=== PATIENT | female | born 1970 | race Caucasian/White ===

== ENCOUNTER 2016-10-09 16:13 | Inpatient (IN) | payer MEDICAID ==
[~2016-10-09] VITALS: Ht 152.4 cm; Wt 51.4 kg
[~2016-10-09 16:13] MED LIST: MIRT15 PO
[2016-10-09] MEDS ORDERED: GABA100C PO (16:40)
[2016-10-09] MEDS ORDERED: ACTIVATED CHARCOAL 50 GM/240 ML SUSPENSION PO ONE (16:45)
[2016-10-09] MEDS ORDERED: SODIUM CHLORIDE 0.9% 1,000 ML IV ONE ×2 (16:45→19:45)
[2016-10-09] MEDS ORDERED: GABA-531 PO (16:56)
[2016-10-09 16:57] LABS: GLUCOSE,POINT OF CARE 89 MG/DL (70-110)
[2016-10-09 17:00] LABS: BASOPHILS % (AUTO) 0.4 % (0.0-2.0); EOSINOPHILS % (AUTO) 0.2 % (1.0-6.0); HEMATOCRIT 40.1 % (36-46); HEMOGLOBIN 13.1 g/dL (12.0-16.0); LYMPHOCYTES # (AUTO) 1.1 K/uL (1.0-4.8); MEAN CORPUSCULAR HEMOGLOBIN 30.6 pg (26.0-34.0); MEAN CORPUSCULAR HGB CONC 32.7 G/dL (31.0-37.0); MEAN CORPUSCULAR VOLUME 94 fL (80-100); MONOCYTES # (AUTO) 0.2 K/uL (0.1-1.0); MONOCYTES % (AUTO) 4.5 % (2.0-9.0); NEUTROPHILS % (AUTO) 74.9 % (40.0-70.0); PLATELET COUNT (AUTO) 166 K/uL (150-450); RED BLOOD CELL COUNT(AUTO) 4.29 MIL/uL (4.00-5.20); RED CELL DISTRIBUTION WIDTH 15.2 % (11.5-14.5); WHITE BLOOD COUNT (AUTO) 5.4 K/uL (4.5-11.0)
[2016-10-09] MEDS ORDERED: ONDANSETRON HCL 4 MG/2 ML VIAL IVP ONE ×2 (17:00)
[2016-10-09 17:08] LABS: ANION GAP 13 mmol/L (8-16); CALCIUM, TOTAL 8.9 mg/dL (8.8-10.5); CARBON DIOXIDE 25 mmol/L (22-29); CHLORIDE 104 mmol/L (98-107); CREATININE 0.59 mg/dL (0.60-1.30); GLOMERULAR FILTR. RATE CALC > 60 mL/min (>60); POTASSIUM 3.8 mmol/L (3.5-5.1); SODIUM SERUM 142 mmol/L (136-145); UREA NITROGEN, BLOOD 13 mg/dL (7-18)
[2016-10-09 17:13] LABS: PROTHROMBIN TIME 10.7 SEC (9.4-11.6)
[2016-10-09 17:15] LABS: ALANINE AMINOTRANSFERASE 18 U/L (12-78); ALBUMIN 4.3 g/dL (3.4-5.0); ASPARTATE AMINOTRANSFERASE 13 U/L (15-37); BILIRUBIN,TOTAL 0.5 mg/dL (0.1-1.0); TOTAL PROTEIN, SERUM 7.7 g/dL (6.4-8.2)
[2016-10-09 17:22] LABS: SALICYLATE < 2.8 mg/dL (2.8-20.0)
[2016-10-09 17:39] LABS: ACETAMINOPHEN < 2 mcg/mL (10-30)
[2016-10-09] MEDS ORDERED: LORazepam 2 MG TABLET PO PRN (21:30)
[2016-10-09] MEDS ORDERED: ZOLPIDEM TARTRATE 10 MG TABLET PO PRN (21:30)
[2016-10-09] MEDS ORDERED: OLANZapine 5 MG RAPDIS TABLET PO PRN (21:30)
[2016-10-09 22:16] LABS: APPEARANCE,URINE CLEAR (CLEAR); GLUCOSE, URINE (UA) NEGATIVE (NEGATIVE); KETONES,URINE TRACE mg/dL (NEGATIVE); LEUKOCYTE ESTERASE ,URINE NEGATIVE (NEGATIVE); PROTEIN,URINE NEGATIVE (NEGATIVE)
[2016-10-09 22:23] LABS: ADD UA MICROSCOPIC YES; OCCULT BLOOD,URINE TRACE (NEGATIVE)
[2016-10-09 22:24] LABS: SQUAMOUS EPITHELIAL CELL,UR Few /LPF (None Seen); WBC,URINE 0-2 /HPF (0-5)
[2016-10-10 01:29] VITALS: BP 123/71
[2016-10-10 01:39] VITALS: BP 123/71
[2016-10-10 08:00] VITALS: BP 110/69
[2016-10-10] MEDS ORDERED: MAG HYDROX/AL HYDROX/SIMETH ES 30 ML SUSPENSION UDCUP PO PRN (09:15)
[2016-10-10] MEDS ORDERED: ACETAMINOPHEN 325 MG TABLET PO PRN (09:15)
[2016-10-10] MEDS ORDERED: PROMETHAZINE HCL 25 MG TABLET PO PRN (09:15)
[2016-10-10] MEDS ORDERED: LOPERAMIDE HCL 2 MG CAPSULE PO PRN (09:15)
[2016-10-10] MEDS ORDERED: HydrOXYzine PAMOATE 50 MG CAPSULE PO PRN (09:15)
[2016-10-10] MEDS ORDERED: MAGNESIUM HYDROXIDE SUSPENSION 30 ML UDCUP PO PRN (09:15)
[2016-10-10] MEDS ORDERED: GuaiFENesin/D-METHORPHAN [SUGAR-FREE] 200-20MG/10 ML SYRUP UDCUP PO PRN (09:15)
[2016-10-10] MEDS: THIAMINE HCL 100 MG TABLET PO SCH (16:23)
[2016-10-10 18:53] VITALS: BP 100/72
[2016-10-10] MEDS: MIRTAZAPINE 15 MG TABLET PO SCH (20:26)
[2016-10-10] MEDS ORDERED: IBUPROFEN 400 MG TABLET PO PRN (21:30)
[2016-10-11 07:17] LABS: HEMOGLOBIN A1C 4.8 % (4.5-6.2)
[2016-10-11 07:40] LABS: THYROID STIMULATING HORMONE 0.38 uIU/mL (0.36-3.74)
[2016-10-11 08:01] VITALS: BP 105/60
[2016-10-11] MEDS: FOLIC ACID 1 MG TABLET PO SCH (08:15)
[2016-10-11] MEDS: NALTREXONE HCL 50 MG TABLET PO SCH (08:15)
[2016-10-11] MEDS: THIAMINE HCL 100 MG TABLET PO SCH ×2 (08:15→16:52)
[2016-10-11] MEDS: MULTIVITAMINS WITH MINERALS, THERAPEUTIC TABLET PO SCH (08:15)
[2016-10-11 16:58] VITALS: BP 116/68
[2016-10-11] MEDS: MIRTAZAPINE 15 MG TABLET PO SCH (20:30)
[2016-10-12] MEDS ORDERED: BuPROPion HCL XL 150 MG ER TABLET PO SCH (09:00)
[2016-10-12] MEDS: NALTREXONE HCL 50 MG TABLET PO SCH (09:31)
[2016-10-12] MEDS: THIAMINE HCL 100 MG TABLET PO SCH ×2 (09:31→16:22)
[2016-10-12] MEDS: FOLIC ACID 1 MG TABLET PO SCH (09:31)
[2016-10-12] MEDS: MULTIVITAMINS WITH MINERALS, THERAPEUTIC TABLET PO SCH (09:31)
[2016-10-12 10:23] VITALS: BP 107/69
[2016-10-12] MEDS ORDERED: BUPR-47 PO (15:30)
[2016-10-12] MEDS ORDERED: MIRT15 PO (15:30)
[2016-10-12] MEDS ORDERED: NALT50 PO (15:30)
[2016-10-12 16:16] VITALS: BP 101/68
[2016-10-12] MEDS: MIRTAZAPINE 15 MG TABLET PO SCH (21:03)
[2016-10-13 08:37] VITALS: BP 108/68
[2016-10-13] MEDS ORDERED: BuPROPion HCL XL 150 MG ER TABLET PO SCH (09:00)
[2016-10-13] MEDS: NALTREXONE HCL 50 MG TABLET PO SCH (10:18)
[2016-10-13] MEDS: THIAMINE HCL 100 MG TABLET PO SCH (10:19)
[2016-10-13] MEDS: MULTIVITAMINS WITH MINERALS, THERAPEUTIC TABLET PO SCH (10:19)
[2016-10-13] MEDS: FOLIC ACID 1 MG TABLET PO SCH (10:19)
== END 2016-10-13 12:45 | disposition home or self-care (01) | DRG 751 ==
LOC: EMS 16:15 → 3EI 22:07
PROVIDERS: ADMIT Psychiatry & Neurology Psychiatry; ATTEND Psychiatry & Neurology Psychiatry
PROC: HZ51ZZZ Individual Psychotherapy for Substance Abuse Treatment, Behavioral (ICD-10-PCS; principal; 2016-10-10)
DX: F33.9 Major depressive disorder, recurrent, unspecified (principal); E78.5 Hyperlipidemia, unspecified; F10.10 Alcohol abuse, uncomplicated; F19.10 Other psychoactive substance abuse, uncomplicated; F12.90 Cannabis use, unspecified, uncomplicated; F17.210 Nicotine dependence, cigarettes, uncomplicated; Z71.41 Alcohol abuse counseling and surveillance of alcoholic; Z71.51 Drug abuse counseling and surveillance of drug abuser; Z91.5 Personal history of self-harm; Z79.899 Other long term (current) drug therapy
CPT/HCPCS: 82962; 83036; 84443; 93005; 96361; 96374; 99291; G0480; G0481; J2405; J7030

== ENCOUNTER 2017-04-27 20:53 | Inpatient (IN) | payer MEDICAID ==
[~2017-04-27] VITALS: Ht 149.9 cm; Wt 48.1 kg
[~2017-04-27 20:53] MED LIST changes: +BUPR-47 PO; +NALT50TA6 PO
[2017-04-27] MEDS ORDERED: TRAZ-147 PO (21:00)
[2017-04-27] MEDS ORDERED: BUPR-93 PO (21:00)
[2017-04-27] MEDS ORDERED: LORazepam 2 MG TABLET PO ONE (22:00)
[2017-04-27 22:19] LABS: BASOPHILS # (AUTO) 0.01 K/uL (0.00-0.20); BASOPHILS % (AUTO) 0.4 % (0.0-2.0); EOSINOPHILS # (AUTO) 0.08 K/uL (0.00-0.70); EOSINOPHILS % (AUTO) 1.96 % (1.0-6.0); HEMATOCRIT 36.6 % (36-46); HEMOGLOBIN 12.4 g/dL (12.0-16.0); LYMPHOCYTES # (AUTO) 1.1 K/uL (1.0-4.8); LYMPHOCYTES % (AUTO) 28.9 % (22.0-44.0); MEAN CORPUSCULAR HEMOGLOBIN 31.6 pg (26.0-34.0); MEAN CORPUSCULAR HGB CONC 33.8 G/dL (31.0-37.0); MEAN CORPUSCULAR VOLUME 94 fL (80-100); MONOCYTES # (AUTO) 0.3 K/uL (0.1-1.0); MONOCYTES % (AUTO) 8.1 % (2.0-9.0); NEUTROPHILS # (AUTO) 2.4 K/uL (1.8-7.7); NEUTROPHILS % (AUTO) 60.7 % (40.0-70.0); PLATELET COUNT (AUTO) 174 K/uL (150-450); RED BLOOD CELL COUNT(AUTO) 3.92 MIL/uL (4.00-5.20); RED CELL DISTRIBUTION WIDTH 14.9 % (11.5-14.5)
[2017-04-27 22:29] LABS: ANION GAP 6 mmol/L (8-16); CALCIUM, TOTAL 8.9 mg/dL (8.8-10.5); CARBON DIOXIDE 28 mmol/L (22-29); CHLORIDE 102 mmol/L (98-107); CREATININE 0.79 mg/dL (0.60-1.30); GLOMERULAR FILTR. RATE CALC > 60 mL/min (>60); SODIUM SERUM 136 mmol/L (136-145); UREA NITROGEN, BLOOD 17 mg/dL (7-18)
[2017-04-27 22:35] LABS: ALANINE AMINOTRANSFERASE 14 U/L (12-78); ASPARTATE AMINOTRANSFERASE 11 U/L (15-37); BILIRUBIN,TOTAL 0.2 mg/dL (0.1-1.0); TOTAL PROTEIN, SERUM 7.2 g/dL (6.4-8.2)
[2017-04-27] MEDS ORDERED: MAGNESIUM HYDROXIDE SUSPENSION 30 ML UDCUP PO PRN (23:00)
[2017-04-27] MEDS ORDERED: HALOPERIDOL 5 MG TABLET PO PRN (23:00)
[2017-04-27] MEDS ORDERED: MAG HYDROX/AL HYDROX/SIMETH ES 30 ML SUSPENSION UDCUP PO PRN (23:00)
[2017-04-27] MEDS ORDERED: LORazepam 2 MG TABLET PO PRN (23:00)
[2017-04-27] MEDS ORDERED: ZOLPIDEM TARTRATE 10 MG TABLET PO PRN (23:00)
[2017-04-27] MEDS ORDERED: ACETAMINOPHEN 325 MG TABLET PO PRN (23:00)
[2017-04-28 01:13] VITALS: BP 124/84
[2017-04-28 06:45] LABS: CHOL/HDL RATIO 2.9 (3.9-5.7)
[2017-04-28 08:15] VITALS: BP 102/58
[2017-04-28] MEDS: BuPROPion HCL XL 150 MG ER TABLET PO SCH (12:03)
[2017-04-28 17:30] VITALS: BP 112/68
[2017-04-28] MEDS: TraZODone HCL 100 MG TABLET PO SCH (20:37)
[2017-04-29 09:10] VITALS: BP 100/53
[2017-04-29] MEDS: BuPROPion HCL XL 150 MG ER TABLET PO SCH (09:25)
[2017-04-29 17:11] VITALS: BP 100/58
[2017-04-29] MEDS: TraZODone HCL 100 MG TABLET PO SCH (20:47)
[2017-04-30 08:50] VITALS: BP 102/59
[2017-04-30] MEDS: BuPROPion HCL XL 150 MG ER TABLET PO SCH (09:26)
[2017-04-30 10:31] LABS: APPEARANCE,URINE CLEAR (CLEAR); GLUCOSE, URINE (UA) NEGATIVE (NEGATIVE); KETONES,URINE NEGATIVE (NEGATIVE); LEUKOCYTE ESTERASE ,URINE NEGATIVE (NEGATIVE); OCCULT BLOOD,URINE NEGATIVE (NEGATIVE); PH,URINE 5.5 (5.0-8.0); PROTEIN,URINE NEGATIVE (NEGATIVE)
[2017-04-30 10:35] LABS: ADD UA MICROSCOPIC NO
[2017-04-30 17:30] VITALS: BP 98/66
[2017-04-30] MEDS: TraZODone HCL 100 MG TABLET PO SCH (20:45)
[2017-05-01] MEDS: BuPROPion HCL XL 150 MG ER TABLET PO SCH (08:33)
[2017-05-01 09:45] VITALS: BP 90/64
== END 2017-05-01 14:15 | disposition home or self-care (01) | DRG 751 ==
LOC: EMS 20:55 → 3EI 22:56
PROVIDERS: ADMIT Psychiatry & Neurology Psychiatry; ATTEND Psychiatry & Neurology Child & Adolescent Psychiatry
DX: F33.2 Major depressive disorder, recurrent severe without psychotic features (principal); R45.851 Suicidal ideations; F41.9 Anxiety disorder, unspecified; F10.10 Alcohol abuse, uncomplicated; E78.5 Hyperlipidemia, unspecified
CPT/HCPCS: 99285; G0480

== ENCOUNTER 2019-12-09 22:57 | Emergency (ER) | payer MEDICAID ==
[~2019-12-09] VITALS: Ht 152.4 cm; Wt 54.5 kg
[~2019-12-09 22:57] MED LIST changes: -BUPR-47 PO; +BUPR-93 PO; -MIRT15 PO; -NALT50TA6 PO; +TRAZ-257 PO
[2019-12-10] MEDS ORDERED: ACETAMINOPHEN/CODEINE 300-30 MG TABLET PO ONE (02:00)
[2019-12-10] MEDS ORDERED: GuaiFENesin/D-METHORPHAN [SUGAR-FREE] 200-20MG/10 ML SYRUP UDCUP PO ONE (02:00)
[2019-12-10] MEDS ORDERED: IBUPROFEN 600 MG TABLET PO ONE (02:00)
[2019-12-10 02:11] VITALS: BP 140/80
[2019-12-10 02:56] LABS: INFLUENZA TYPE A NEGATIVE FOR TYPE A (NEGATIVE); INFLUENZA TYPE B NEGATIVE FOR TYPE B (NEGATIVE)
== END 2019-12-10 02:13 | disposition home or self-care (01) ==
LOC: EMS 22:57
DX: R05 Cough (principal); R06.00 Dyspnea, unspecified; R07.9 Chest pain, unspecified; Z20.828 Contact with and (suspected) exposure to other viral communicable diseases; F41.9 Anxiety disorder, unspecified; F32.9 Major depressive disorder, single episode, unspecified
CPT/HCPCS: 87804; 99284; U0003